=== PATIENT | male | born 1970 | race Caucasian/White ===

== ENCOUNTER 2021-01-23 09:27 | Inpatient (IN) | payer OTHER ==
[2021-01-23] MEDS ORDERED: SODIUM CHLORIDE 0.9% 1,000 ML IV STA ×2 (10:01)
[2021-01-23] MEDS ORDERED: ALBUTEROL HFA INHALER INHALATION STA (10:12)
[2021-01-23 10:40] LABS: Basophils # (A) 0.1 k/uL (0-0.2); Basophils % (A) 1 %; Eosinophils % (A) 0 %; HGB 17.4 gm/dL (13.0-17.5); Lymphocytes # (A) 1.2 k/uL (1.0-4.8); Lymphocytes % (A) 20 %; MCH 27.1 pg (25.0-35.0); MCHC 33.5 g/dL (31.0-37.0); Mean Platelet Volume 8.3; Monocytes # (A) 0.4 k/uL (0-1.0); Monocytes % (A) 6 %; Neutrophils # (A) 4.4 k/uL (1.3-7.7); Neutrophils % (A) 72 %; Platelet Count 204 k/uL (150-450); RBC 6.42 m/uL (4.30-5.90); RDW 13.8 % (11.5-15.5); WBC 6.1 k/uL (3.8-10.6)
[2021-01-23 10:47] LABS: ALT 19 U/L (4-49); AST 30 U/L (17-59); African American GFR (CKD) >90 (>60 ml/min/1.73 sqM); Albumin 4.4 g/dL (3.5-5.0); Alkaline Phosphatase 67 U/L (38-126); Anion Gap 17 mmol/L; Blood Urea Nitrogen 19 mg/dL (9-20); Calcium 8.8 mg/dL (8.4-10.2); Carbon Dioxide 24 mmol/L (22-30); Chloride 94 mmol/L (98-107); Creatine Kinase 57 U/L (55-170); Glucose 155 mg/dL (74-99); Non-African American GFR(CKD) 86 (>60 ml/min/1.73 sqM); Potassium 4.2 mmol/L (3.5-5.1); Sodium 135 mmol/L (137-145); Total Bilirubin 0.9 mg/dL (0.2-1.3); Total Protein 7.4 g/dL (6.3-8.2)
[2021-01-23 10:54] LABS: Partial Thromboplastin Time 23.4 sec (22.0-30.0); Prothrombin Time 10.3 sec (9.0-12.0)
[2021-01-23 10:56] LABS: D-Dimer 0.92 mg/L FEU (<0.60)
--- NOTE | 2021-01-23 10:57 | XR ---
EXAMINATION TYPE: XR chest 2V DATE OF EXAM: 01/23/2021 COMPARISON: Chest x-ray September 23, 2015 HISTORY: Shortness of breath. TECHNIQUE: Frontal and lateral views of the chest are obtained. FINDINGS: There is chronic parenchymal change bilaterally without suspicious new focal air space opa city, pleural effusion, or pneumothorax seen. The cardiac silhouette size is stable and upper limits of normal. Overlying EKG leads. The osseous structures are intact. IMPRESSION: Chronic changes without acute pulmonary process.
--- NOTE | 2021-01-23 11:01 | ED ---
SOB HPI - General Chief Complaint: Shortness of Breath Stated Complaint: SANJU Time Seen by Provider: 01/23/21 09:40 Source: patient, RN notes reviewed Mode of arrival: ambulatory Limitations: no limitations - History of Present Illness Initial Comments: This a 50-year-old male who was diagnosed with Covid 19 last week had an outpatient clinic after presenting with complaints of headache fever. Her last 7 days he's been homebound but he presents today with complaints of fever cough shortness of breath chest pain with breathing exertional dyspnea. He states he did decrease oral intake and appetite. MD Complaint: shortness of breath, cough - Related Data Home Medications Medication Instructions Recorded Confirmed ARIPiprazole [Abilify] 20 mg PO DAILY 01/23/21 01/23/21 Alogliptin Benzoate [Alogliptin] 25 mg PO DAILY 01/23/21 01/23/21 Cholecalciferol [Vitamin D3 (25 50 mcg PO DAILY 01/23/21 01/23/21 Mcg = 1000 Iu)] Empagliflozin [Jardiance] 25 mg PO DAILY 01/23/21 01/23/21 FLUoxetine HCL [PROzac] 60 mg PO DAILY 01/23/21 01/23/21 Fluticasone Nasal [place] [Flonase 1 spr EA NOSTRIL BID 01/23/21 01/23/21 Nasal [place]] Insulin Glargine,Hum.rec.anlog 50 unit SQ HS 01/23/21 01/23/21 [Lantus Solostar] Levothyroxine Sodium [Synthroid] 50 mcg PO DAILY 01/23/21 01/23/21 Lidocaine 5% Patch [Lidoderm 5% 1 patch TRANSDERM DAILY 01/23/21 01/23/21 Patch] Naproxen [Naprosyn] 500 mg PO BID PRN 01/23/21 01/23/21 QUEtiapine FUMARATE [SEROquel] 300 mg PO TID 01/23/21 01/23/21 Sildenafil Citrate 100 mg PO DAILY PRN 01/23/21 01/23/21 Temazepam [Restoril] 30 - 60 mg PO HS PRN 01/23/21 01/23/21 glipiZIDE [Glucotrol] 5 mg PO AC-BID 01/23/21 01/23/21 metFORMIN HCL 1,000 mg PO BID 01/23/21 01/23/21 Allergies Allergy/AdvReac Type Severity Reaction Status Date / Time lithium Allergy Rash/Hives Verified 01/23/21 11:23 Review of Systems ROS Statement: Those systems with pertinent positive or pertinent negative responses have been documented in the HPI. ROS Other: All systems not noted in ROS Statement are negative. Past Medical History Past Medical History: Diabetes Mellitus, Hyperlipidemia History of Any Multi-Drug Resistant Organisms: None Reported Past Surgical History: Orthopedic Surgery Additional Past Surgical History / Comment(s): left arm Past Anesthesia/Blood Transfusion Reactions: No Reported Reaction Past Psychological History: Bipolar, Depression, PTSD Smoking Status: Never smoker Past Alcohol Use History: Rare Past Drug Use History: None Reported General Exam - General Exam Comments Initial Comments: This is a well-developed well-nourished awake alert oriented 3 male Limitations: no limitations General appearance: alert, anxious Head exam: Present: atraumatic, normocephalic, normal inspection Eye exam: Present: normal appearance, PERRL, EOMI. Absent: scleral icterus, conjunctival injection, periorbital swelling ENT exam: Present: mucous membranes dry Neck exam: Present: normal inspection, full ROM, other (No stridor JVD or bruits). Absent: tenderness, meningismus, lymphadenopathy Respiratory exam: Present: decreased breath sounds. Absent: respiratory distress, wheezes, rales, rhonchi, stridor Cardiovascular Exam: Present: normal rhythm, tachycardia, normal heart sounds. Absent: systolic murmur, diastolic murmur, rubs, gallop, clicks GI/Abdominal exam: Present: soft, normal bowel sounds. Absent: distended, tenderness, guarding, rebound, rigid Extremities exam: Present: normal inspection, full ROM, normal capillary refill. Absent: tenderness, pedal edema, joint swelling, calf tenderness Back exam: Present: normal inspection Neurological exam: Present: alert, oriented X3, CN II-XII intact Psychiatric exam: Present: normal affect, normal mood Skin exam: Present: warm, dry, intact, normal color. Absent: rash Course Vital Signs 01/23/21 01/23/21 01/23/21 09:29 09:45 10:00 Temperature 100.3 F H Pulse Rate 137 H 127 H Respiratory 16 18 Rate Blood Pressure 127/81 139/93 O2 Sat by Pulse 95 95 98 Oximetry 01/23/21 01/23/21 01/23/21 11:00 11:48 12:35 Temperature 99.3 F Pulse Rate 120 H 120 H 115 H Respiratory 20 20 20 Rate Blood Pressure 139/93 145/95 136/93 O2 Sat by Pulse 97 95 97 Oximetry Medical Decision Making - Medical Decision Making I did discuss Pfizer the patient and with Dr. Cesar the patient be admitted for inpatient evaluation treatment of bilateral pneumonia, dehydration, tachycardia,covid 19 - Lab Data Result diagrams: 01/23/21 10:20 01/23/21 10:20 Lab Results 01/23/21 01/23/21 01/23/21 Range/Units 10:20 10:20 10:20 WBC 6.1 (3.8-10.6) k/uL RBC 6.42 H (4.30-5.90) m/uL Hgb 17.4 (13.0-17.5) gm/dL Hct 52.0 (39.0-53.0) % MCV 81.0 (80.0-100.0) fL MCH 27.1 (25.0-35.0) pg MCHC 33.5 (31.0-37.0) g/dL RDW 13.8 (11.5-15.5) % Plt Count 204 (150-450) k/uL MPV 8.3 Neutrophils % 72 % Lymphocytes % 20 % Monocytes % 6 % Eosinophils % 0 % Basophils % 1 % Neutrophils # 4.4 (1.3-7.7) k/uL Lymphocytes # 1.2 (1.0-4.8) k/uL Monocytes # 0.4 (0-1.0) k/uL Eosinophils # 0.0 (0-0.7) k/uL Basophils # 0.1 (0-0.2) k/uL PT 10.3 (9.0-12.0) sec INR 1.0 (<1.2) APTT 23.4 (22.0-30.0) sec D-Dimer 0.92 H (<0.60) mg/L FEU Sodium 135 L (137-145) mmol/L Potassium 4.2 (3.5-5.1) mmol/L Chloride 94 L (98-107) mmol/L Carbon Dioxide 24 (22-30) mmol/L Anion Gap 17 mmol/L BUN 19 (9-20) mg/dL Creatinine 1.00 (0.66-1.25) mg/dL Est GFR (CKD-EPI)AfAm >90 (>60 ml/min/1.73 sqM) Est GFR (CKD-EPI)NonAf 86 (>60 ml/min/1.73 sqM) Glucose 155 H (74-99) mg/dL Plasma Lactic Acid Nick (0.7-2.0) mmol/L Calcium 8.8 (8.4-10.2) mg/dL Magnesium 2.0 (1.6-2.3) mg/dL Total Bilirubin 0.9 (0.2-1.3) mg/dL AST 30 (17-59) U/L ALT 19 (4-49) U/L Alkaline Phosphatase 67 (38-126) U/L Creatine Kinase 57 (55-170) U/L Troponin I (0.000-0.034) ng/mL NT-Pro-B Natriuret Pep pg/mL Total Protein 7.4 (6.3-8.2) g/dL Albumin 4.4 (3.5-5.0) g/dL 01/23/21 01/23/21 01/23/21 Range/Units 10:20 10:20 10:20 WBC (3.8-10.6) k/uL RBC (4.30-5.90) m/uL Hgb (13.0-17.5) gm/dL Hct (39.0-53.0) % MCV (80.0-100.0) fL MCH (25.0-35.0) pg MCHC (31.0-37.0) g/dL RDW (11.5-15.5) % Plt Count (150-450) k/uL MPV Neutrophils % % Lymphocytes % % Monocytes % % Eosinophils % % Basophils % % Neutrophils # (1.3-7.7) k/uL Lymphocytes # (1.0-4.8) k/uL Monocytes # (0-1.0) k/uL Eosinophils # (0-0.7) k/uL Basophils # (0-0.2) k/uL PT (9.0-12.0) sec INR (<1.2) APTT (22.0-30.0) sec D-Dimer (<0.60) mg/L FEU Sodium (137-145) mmol/L Potassium (3.5-5.1) mmol/L Chloride (98-107) mmol/L Carbon Dioxide (22-30) mmol/L Anion Gap mmol/L BUN (9-20) mg/dL Creatinine (0.66-1.25) mg/dL Est GFR (CKD-EPI)AfAm (>60 ml/min/1.73 sqM) Est GFR (CKD-EPI)NonAf (>60 ml/min/1.73 sqM) Glucose (74-99) mg/dL Plasma Lactic Acid Nick 2.0 (0.7-2.0) mmol/L Calcium (8.4-10.2) mg/dL Magnesium (1.6-2.3) mg/dL Total Bilirubin (0.2-1.3) mg/dL AST (17-59) U/L ALT (4-49) U/L Alkaline Phosphatase (38-126) U/L Creatine Kinase (55-170) U/L Troponin I <0.012 (0.000-0.034) ng/mL NT-Pro-B Natriuret Pep 18 pg/mL Total Protein (6.3-8.2) g/dL Albumin (3.5-5.0) g/dL - EKG Data -: EKG Interpreted by Me EKG shows normal: sinus rhythm EKG Comments: Sinus tachycardia rate 136. Interval 132 QRS 80 QT since QTC 280/433 evidence of a left posterior fascicular block. - Radiology Data Radiology results: report reviewed (Image reviewed no definitive evidence of PE there is however evidence of bilateral infiltrates consistent with pneumonia.), image reviewed Disposition Clinical Impression: Bronchospasm, acute, Bilateral pneumonia, History of COVID-19, Dehydration, Tachycardia, Failure to thrive Disposition: ADMITTED IP TO THIS HOSP Condition: Fair Referrals: [facility],Clinic [Primary Care Provider] - 1-2 days
--- NOTE | 2021-01-23 12:24 | CT ---
EXAMINATION TYPE: CT angio chest DATE OF EXAM: 01/23/2021 11:47 AM COMPARISON: Chest x-ray earlier today HISTORY: difficulty breathing CT DLP: 552.2 mGycm Automated exposure control for dose reduction was used. CONTRAST: CTA scan of the thorax is performed with IV Contrast, patient injected with 100 mL of Isovue 370, pul monary embolism protocol. MIP images are created and reviewed. FINDINGS: LUNGS: Multifocal areas of groundglass opacity bilaterally greatest in the right lower lobe are prese nt on CT less well seen on plain films. No nodules or masses. No pleural effusion or pneumothorax. Mi ld linear scarring or atelectasis left lung base. MEDIASTINUM: There is some heterogeneity in contrast bolus with more dense contrast in the aorta, no acute pulmonary embolism is identified. There are no greater than 1 cm hilar or mediastinal lymph no nuzhat. No pericardial effusion is seen. Abnormal 2.0 x 1.9 cm right paratracheal hyperdense mass or l ymph node axial image 31. Prominent but subcentimeter bilateral hilar lymph nodes. Trace pericardial effusion right anterior inferior aspect. No cardiomegaly. No thoracic aortic aneurysm or dissection. OTHER: Small hiatal hernia. Low dense thickening both adrenal glands right greater than left favors benign lipid rich hyperplasia. Low density to liver suggests diffuse fatty infiltration. Underlying S coliotic curvature. IMPRESSION: 1. Suboptimal study without CT evidence for acute pulmonary embolism. 2. Bilateral multifocal ground glass opacities greatest in the right lower lobe, Covid-19 infection n eeds to be considered in current environment. Suspect reactive bilateral hilar adenopathy. More suspi cious right paratracheal mass or adenopathy warrants follow-up.
[2021-01-23] MEDS ORDERED: ALBUTEROL NEBULIZED 2.5 MG/3 ML INHALATION PRN (12:58)
[2021-01-23] MEDS ORDERED: PNEUMONIA PROTOCOL UTILIZED 1 EACH MISC PO PRN (12:58)
[2021-01-23] MEDS ORDERED: NAPROXEN 250 MG TAB PO PRN (13:01)
[2021-01-23] MEDS ORDERED: TEMAZEPAM 30 MG CAP PO PRN (13:01)
[2021-01-23] MEDS: SODIUM CHLORIDE 0.9% 1,000 ML IV SCH ×2 (14:31→20:22)
--- NOTE | 2021-01-23 15:23 | P.CNPUL ---
History of Present Illness Consult date: 01/23/21 Reason for consult: dyspnea, pneumonia History of present illness: 48-year-old male patient was hospitalized today through the emergency department because of worsening shortness of breath. The patient started having headache and tiredness and fatigue along with some chills and fever approximately a week ago and he went to [facility] and [place] where he was tested and he checked positive for COVID 19. Following that, the patient was sent home on no treatment and he was receiving only supportive treatment. The patient started getting progressively more shortness of breath and he started having increased cough and for that reason he came into the emergency department today where he was found to be tachycardic and hypoxic and he was placed on oxygen at 2 L per minute nasal cannula and the pulse ox is currently 95%. He is in sinus rhythm. He is afebrile. His blood work on today's evaluation shows a white second of 6.1, d-dimer is at 0.92, and the rest of the blood work shows normal electrolytes, normal renal function test, normal LFTs, troponins are negative, proBNP level was nonelevated. Inflammatory markers were not sent and they should. The chest x-ray showed some limited infiltrates and based on that the patient underwent a CT angios the chest that showed no evidence of any pulmonary embolism. There was vague interstitial and ground glass pulmonary infiltrate bilaterally more so in the right lower lobe. This was consistent with Covid 19 infection. For that reason, the patient was hospitalized. No altered mentation. He has loss in the face and the smell. No chest pain. No smoking. No history of COPD or asthma. He is diabetic and he takes a combination of treatment including Lantus, glipizide, Jardiance, ALOGLIPTIN. Noted the patient also had a low-grade fever at 100.3 on admission and currently is afebrile. Review of Systems Constitutional: Reports chills, Reports fatigue, Reports fever, Reports weakness Eyes: denies as per HPI, denies blurred vision, denies bulging eye, denies decreased vision, denies diplopia, denies discharge, denies dry eye, denies irritation, denies itching, denies pain, denies photophobia, denies loss of peripheral vision, denies loss of vision, denies tunnel vision/blind spots Ears: deny: decreased hearing, ear discharge, earache, tinnitus Ears, nose, mouth and throat: Denies headache, Denies sore throat Cardiovascular: Reports decreased exercise tolerance, Reports dyspnea on exertion Respiratory: Reports cough, Reports dyspnea Gastrointestinal: Reports as per HPI Genitourinary: Reports as per HPI Musculoskeletal: Reports as per HPI Musculoskeletal: absent: ankle pain, ankle stiffness, ankle swelling, as per HPI, elbow pain, elbow stiffness, elbow swelling, foot pain, foot stiffness, foot swelling, hand pain, hand stiffness, hand swelling, hip pain, hip stiffness, hip swelling, knee pain, knee stiffness, knee swelling, shoulder pain, shoulder stiffness, shoulder swelling, wrist pain, wrist stiffness, wrist swelling Integumentary: Reports as per HPI Neurological: Reports headaches Psychiatric: Reports as per HPI Endocrine: Reports fatigue Hematologic/Lymphatic: Reports as per HPI Allergic/Immunologic: Reports as per HPI Past Medical History Past Medical History: Diabetes Mellitus, GERD/Reflux, Hearing Disorder / Deafness, Hyperlipidemia, Osteoarthritis (OA) Additional Past Medical History / Comment(s): COVID + 01/16/21 at [place], IDDM type II, insomnia, hypothyroid, R ear tinnitis, sinus problems, chronic low back pain, RLS. History of Any Multi-Drug Resistant Organisms: None Reported Past Surgical History: Orthopedic Surgery Additional Past Surgical History / Comment(s): L shoulder arthroscopy Past Anesthesia/Blood Transfusion Reactions: No Reported Reaction Past Psychological History: Bipolar, Depression, PTSD Additional Psychological History / Comment(s): Pt resides alone. He is independent. He drives. Pt sees someone for his mental health thru [facility] in [place]. Smoking Status: Never smoker Past Alcohol Use History: None Reported Past Drug Use History: None Reported - Past Family History Mother Family Medical History: COPD Additional Family Medical History / Comment(s): Mother has home oxygen. Father Family Medical History: Myocardial Infarction ([place]) Additional Family Medical History / Comment(s): Father of a [place] at the age of 59 yrs. Medications and Allergies Home Medications Medication Instructions Recorded Confirmed Type ARIPiprazole [Abilify] 20 mg PO DAILY 01/23/21 01/23/21 History Alogliptin Benzoate [Alogliptin] 25 mg PO DAILY 01/23/21 01/23/21 History Cholecalciferol [Vitamin D3 (25 50 mcg PO DAILY 01/23/21 01/23/21 History Mcg = 1000 Iu)] Empagliflozin [Jardiance] 25 mg PO DAILY 01/23/21 01/23/21 History FLUoxetine HCL [PROzac] 60 mg PO DAILY 01/23/21 01/23/21 History Fluticasone Nasal [place] [Flonase 1 spr EA NOSTRIL BID 01/23/21 01/23/21 History Nasal [place]] Insulin Glargine,Hum.rec.anlog 50 unit SQ HS 01/23/21 01/23/21 History [Lantus Solostar] Levothyroxine Sodium [Synthroid] 50 mcg PO DAILY 01/23/21 01/23/21 History Lidocaine 5% Patch [Lidoderm 5% 1 patch TRANSDERM DAILY 01/23/21 01/23/21 History Patch] Naproxen [Naprosyn] 500 mg PO BID PRN 01/23/21 01/23/21 History QUEtiapine FUMARATE [SEROquel] 300 mg PO TID 01/23/21 01/23/21 History Sildenafil Citrate 100 mg PO DAILY PRN 01/23/21 01/23/21 History Temazepam [Restoril] 30 - 60 mg PO HS PRN 01/23/21 01/23/21 History glipiZIDE [Glucotrol] 5 mg PO AC-BID 01/23/21 01/23/21 History metFORMIN HCL 1,000 mg PO BID 01/23/21 01/23/21 History Allergies Allergy/AdvReac Type Severity Reaction Status Date / Time lithium Allergy Rash/Hives Verified 01/23/21 11:23 Physical Exam Vitals: Vital Signs Temp Pulse Resp BP Pulse Ox 01/23/21 14:31 99.3 F 114 H 22 127/72 95 01/23/21 12:35 115 H 20 136/93 97 01/23/21 11:48 99.3 F 120 H 20 145/95 95 01/23/21 11:00 120 H 20 139/93 97 01/23/21 10:00 127 H 18 139/93 98 01/23/21 09:45 95 01/23/21 09:29 100.3 F H 137 H 16 127/81 95 Intake and Output 01/23/21 01/23/21 01/23/21 06:59 14:59 22:59 Other: Weight 59.874 kg The patient appeared well nourished and normally developed. Vital signs as documented. Head exam is unremarkable. No scleral icterus or corneal arcus noted. Neck is without jugular venous distension, thyromegaly, or carotid bruits. Carotid upstrokes are brisk bilaterally. Lungs are clear to auscultation and percussion. There were a few crackles in the the lung bases can be appreciated bilaterally Cardiac exam reveals the PMI to be normally sized and situated. Rhythm is regular. First and second heart sounds normal. No murmurs, rubs or gallops. Abdominal exam reveals normal bowel sounds, no masses, no organomegaly and no aortic enlargement. Extremities are nonedematous and both femoral and pedal pulses are normal.Examination of the skin revealed no evidence of significant rashes, suspicious appearing nevi or other concerning lesion s.Neurologically, the patient is awake and alert and the patient does not have any focal neurological deficit. Cranial nerves are essentially intact. Results - Laboratory Findings CBC and BMP: 01/23/21 10:20 01/23/21 10:20 PT/INR, D-dimer PT 10.3 sec (9.0-12.0) 01/23/21 10:20 INR 1.0 (<1.2) 01/23/21 10:20 D-Dimer 0.92 mg/L FEU (<0.60) H 01/23/21 10:20 Abnormal lab findings: Abnormal Labs 01/23/21 01/23/21 01/23/21 10:20 10:20 10:20 RBC 6.42 H D-Dimer 0.92 H Sodium 135 L Chloride 94 L Glucose 155 H - Diagnostic Findings Chest x-ray: image reviewed CT scan - chest: image reviewed Assessment and Plan Plan: 1 Acute bilateral COVID 19 related pneumonia with secondary shortness of breath and hypoxic respiratory failure. The patient was diagnosed having the infection on 01/16/2021. 2 acute hypoxemia and shortness of breath secondary to above 3 constitutional symptoms in addition to generalized weakness, chills, fever, fatigue and loss in taste and smell secondary to COVID 19 infection 4 diabetes mellitus maintained on a combination of diabetic medication on outpatient basis 5 PTSD and the patient is disabled from the [employer] and is a 6 depression/bipolar disorder 7 hypothyroidism 8 hyperlipidemia 9 osteoarthritis Plan Admit this patient to the medical floor Start the patient oxygen to maintain a saturation above 90%. Titrate the flow Start the patient on Decadron 6 mg by mouth daily Start the patient on Remdesivir per protocol for a total of 5 days Proceed with administering 2 units of convalescent plasma Lovenox 40 mg subcu for DVT prophylaxis Check inflammatory markers including LDH and CRP Monitor the d-dimer Resume home medication will close monitoring of the blood sugars We'll continue to follow
[2021-01-23] MEDS ORDERED: ENOXAPARIN 40 MG/0.4 ML SYRINGE SQ SCH (15:45)
[2021-01-23] MEDS ORDERED: REMDESIVIR 200 MG in SODIUM CHLORIDE 0.9% 250 ML IVPB ONE (16:00)
[2021-01-23] MEDS: glipiZIDE 5 MG TAB PO SCH (17:39)
[2021-01-23] MEDS: QUEtiapine 100 MG TAB PO SCH ×2 (17:53→20:21)
[2021-01-23] MEDS ORDERED: HYDROcodone/APAP 5-325MG 1 EACH TAB PO PRN (17:58)
[2021-01-23] MEDS ORDERED: ALPRAZolam 0.25 MG TAB PO PRN (17:58)
[2021-01-23] MEDS: dexAMETHasone 2 MG TAB PO SCH (18:29)
[2021-01-23] MEDS: ASCORBIC ACID 500 MG TAB PO SCH (18:29)
[2021-01-23] MEDS: ZINC SULFATE 220 MG CAP PO SCH (18:29)
--- NOTE | 2021-01-23 19:55 | HP ---
HISTORY AND PHYSICAL DATE OF SERVICE: 01/23/2021. CHIEF COMPLAINT: Shortness of breath. HISTORY OF PRESENT ILLNESS: This 50-year-old gentleman with a past medical history of diabetes, GERD, hard of hearing, hyperlipidemia, history of DJD being followed by Dr. Castellanos and [facility] in the outpatient setting was having shortness of breath and cough for the last 1 week at least. The patient was seen in [facility] 01/16/2021. Covid 19 was positive. Patient treated symptomatically. The patient went home but the patient has increasing shortness of breath and also has a headache and fever. Because of multiple complications, and the patient also had some cough. The patient came to [facility] and was admitted for further evaluation and treatment. On admission, the pulse ox was found to be 90% on room air. The patient was found to be tachycardic. The labs showed normal WBC, elevated D-dimer, and some hyponatremia. The patient also had a CT angio of the chest which I reviewed personally that showed small hiatal hernia, suboptimal study for pulmonary embolism and bilateral ground-glass opacities suggestive of Covid 19, interstitial pneumonia was also noted. Distribution of the lesions were extensive, right more than the left. Evaluation by pulmonology and Infectious Disease was also sought. There is no history of any rigors or chills at this time. No history of any contact with Covid infections also. PAST MEDICAL HISTORY: History of recent Covid 19 infection, diabetes type 2, GERD, hyperlipidemia, DJD. MEDICATIONS: Medications prior to admission: Home medications are: Lantus 50 units subcu q.h.s., metformin, glipizide, Restoril, Viagra, Seroquel, Naprosyn, Lidoderm, Synthroid, Flonase, Prozac, Jardiance, vitamin D3 and Alogliptin, Abilify. Doses reviewed. ALLERGIES: LITHIUM. FAMILY HISTORY: History of COPD, home O2 for mother. SOCIAL HISTORY: No history of smoking, no history of alcohol intake. REVIEW OF SYSTEMS: ENT: No diminished hearing. No diminished vision. CARDIOVASCULAR system: As mentioned earlier. RESPIRATORY: As mentioned earlier. GI no nausea or vomiting. : No dysuria. NERVOUS SYSTEM: No numbness, weakness. ALLERGY/IMMUNOLOGY: No asthma or hayfever. MUSCULOSKELETAL as mentioned earlier. HEMATOLOGY/ONCOLOGY: No history of anemia. ENDOCRINE: As mentioned earlier. CONSTITUTIONAL: As mentioned earlier. DERMATOLOGY: Negative. RHEUMATOLOGY negative. PSYCHIATRY as mentioned earlier. PHYSICAL EXAMINATION: The patient is alert and oriented times three. Pulse 116, blood pressure 130/80, respiration 22, temperature 99.2, pulse ox 98% on room air. HEENT is conjunctivae normal. NECK: No JVD. CARDIOVASCULAR: S1, S2 muffled. RESPIRATORY: Breath sounds diminished in the bases. Bilateral scattered rhonchi and crackles. ABDOMEN: Soft, obese, nontender. No mass palpable. LEGS: No edema. No swelling. NERVOUS SYSTEM: Higher functions as mentioned earlier. Moves all 4 limbs. No focal motor or sensory deficits. LYMPHATICS: No lymph nodes palpable in the neck, axillae or groin. SKIN: No ulcer, rash or bleeding. JOINTS: No active deforming arthropathy. LAB STUDIES: WBC 6.2, hemoglobin 17.4. D-dimer is 0.92. Sodium 135. ASSESSMENT: 1. Acute COVID-19 pneumonia with acute bilateral interstitial pneumonia with acute hypoxic respiratory failure, present on admission. 2. Elevated D-dimer without any evidence of pulmonary embolism. 3. Hyponatremia. 4. Elevated random glucose, diabetes mellitus type 2. 5. Gastroesophageal reflux disease. 6. Hearing defect. 7. Hyperlipidemia. 8. History of degenerative joint disease. 9. History of bipolar depression, PTSD. 10.Obesity with body mass of 31.9. 11.FULL CODE. RECOMMENDATIONS AND DISCUSSION: In this 50-year-old gentleman who presented with multiple complex medical issues, acute COVID-19 pneumonia, at this time, I recommend to continue the current medications, continue with bronchodilators. We will initiate dexamethasone, zinc and Lovenox. Otherwise, I would also recommend Infectious Disease and Pulmonary consultations. The patient is a candidate for Remdesivir which will be started. Prognosis guarded because of multiple complex medical issues. Further recommendations to follow. A copy of dictation being forwarded to Dr. Castellanos, who is the primary physician. We will monitor the blood sugars closely. See orders for details. MMODL / IJN: [id number] /
[2021-01-23 20:20] LABS: Glucose,Whole Blood 187 mg/dL (75-99)
[2021-01-23] MEDS: FLUTICASONE 50MCG/SPRAY NASAL 16GM EA NOSTRIL SCH (20:20)
[2021-01-23] MEDS: metFORMIN 500 MG TAB PO SCH (20:21)
[2021-01-23] MEDS: INSULIN DETEMIR (LEVEMIR) 100 UNIT/ML SYR SQ SCH (20:21)
[2021-01-24 03:09] LABS: Appearance,Urine Clear (Clear); Bilirubin,Urine Negative (Negative); Blood,Urine Negative (Negative); Color,Urine Yellow; Glucose,Urine (UA) 4+ (Negative); Leukocyte Esterase,Urine Negative (Negative); Mucus,Urine Rare /hpf; Nitrite,Urine Negative (Negative); PH, Urine 5.5 (5.0-8.0); Protein,Urine 1+ (Negative); RBC,Urine <1 /hpf (0-5); Specific Gravity,Urine 1.035 (1.001-1.035); Urobilinogen,Urine <2.0 mg/dL (<2.0); WBC,Urine <1 /hpf (0-5)
[2021-01-24 03:41] LABS: Ketones,Urine 2+ (Negative)
[2021-01-24 06:04] LABS: Glucose,Whole Blood 153 mg/dL (75-99)
[2021-01-24] MEDS: LEVOTHYROXINE 50 MCG TAB PO SCH (06:29)
[2021-01-24] MEDS: SODIUM CHLORIDE 0.9% 1,000 ML IV SCH ×3 (06:29→20:10)
[2021-01-24] MEDS: glipiZIDE 5 MG TAB PO SCH ×2 (06:30→17:13)
[2021-01-24 07:35] LABS: African American GFR (CKD) >90 (>60 ml/min/1.73 sqM); Anion Gap 11 mmol/L; Blood Urea Nitrogen 21 mg/dL (9-20); Calcium 8.4 mg/dL (8.4-10.2); Carbon Dioxide 26 mmol/L (22-30); Chloride 102 mmol/L (98-107); Glucose 166 mg/dL (74-99); LDH 682 U/L (313-618); Non-African American GFR(CKD) >90 (>60 ml/min/1.73 sqM); Potassium 4.3 mmol/L (3.5-5.1); Sodium 139 mmol/L (137-145)
[2021-01-24] MEDS ORDERED: ALBUTEROL HFA INHALER INHALATION PRN (07:43)
[2021-01-24 07:52] LABS: Basophils % (A) 0 %; Eosinophils % (A) 0 %; HCT 44.7 % (39.0-53.0); Lymphocytes # (A) 0.7 k/uL (1.0-4.8); Lymphocytes % (A) 18 %; MCH 26.1 pg (25.0-35.0); MCHC 31.8 g/dL (31.0-37.0); MCV 82.2 fL (80.0-100.0); Mean Platelet Volume 8.6; Monocytes # (A) 0.2 k/uL (0-1.0); Monocytes % (A) 5 %; Neutrophils # (A) 2.9 k/uL (1.3-7.7); Neutrophils % (A) 74 %; Platelet Count 197 k/uL (150-450); RBC 5.43 m/uL (4.30-5.90); RDW 13.8 % (11.5-15.5); WBC 3.9 k/uL (3.8-10.6)
[2021-01-24 07:55] LABS: HGB 14.2 gm/dL (13.0-17.5)
--- NOTE | 2021-01-24 07:57 | XR ---
EXAMINATION TYPE: XR chest 1V DATE OF EXAM: 01/24/2021 COMPARISON: Chest x-ray and CT 01/23/2021 HISTORY: Pneumonia TECHNIQUE: Single frontal view of the chest is obtained. FINDINGS: Vague patchy bilateral density is present within the lungs. Cardiac mediastinal silhouette is stable. No pneumothorax or pleural effusion. There are overlying leads. Patient is rotated. IMPRESSION: Correlate for pneumonia.
[2021-01-24 08:31] LABS: C Reactive Protein 159.7 mg/L (<10.0)
[2021-01-24] MEDS ORDERED: ENOXAPARIN 40 MG/0.4 ML SYRINGE SQ SCH (09:00)
[2021-01-24 09:11] VITALS: BMI 24.3
[2021-01-24] MEDS: FLUoxetine HCL 20 MG CAP PO SCH (09:36)
[2021-01-24] MEDS: ASCORBIC ACID 500 MG TAB PO SCH (09:36)
[2021-01-24] MEDS: CHOLECALCIFEROL 25 MCG (1000 IU) TABLET PO SCH (09:36)
[2021-01-24] MEDS: dexAMETHasone 2 MG TAB PO SCH (09:36)
[2021-01-24] MEDS: LIDOCAINE 5% PATCH TOPICAL SCH (09:37)
[2021-01-24] MEDS: ZINC SULFATE 220 MG CAP PO SCH (09:37)
[2021-01-24] MEDS: LINAGLIPTIN 5 MG TABLET PO SCH (09:43)
[2021-01-24] MEDS: metFORMIN 500 MG TAB PO SCH ×2 (09:43→20:08)
[2021-01-24] MEDS: QUEtiapine 100 MG TAB PO SCH ×3 (09:44→20:08)
[2021-01-24] MEDS: FLUTICASONE 50MCG/SPRAY NASAL 16GM EA NOSTRIL SCH ×2 (09:47→20:10)
[2021-01-24] MEDS: NON FORMULARY DRUG (Empagliflozin [Jardiance] 25 MG Tablet) PO SCH (11:37)
--- NOTE | 2021-01-24 12:21 | P.PN ---
Subjective Progress Note Date: 01/24/21 48-year-old male patient was hospitalized today through the emergency department because of worsening shortness of breath. The patient started having headache and tiredness and fatigue along with some chills and fever approximately a week ago and he went to [facility] and [place] where he was tested and he checked positive for COVID 19. Following that, the patient was sent home on no treatment and he was receiving only supportive treatment. The patient started getting progressively more shortness of breath and he started having increased cough and for that reason he came into the emergency department today where he was found to be tachycardic and hypoxic and he was placed on oxygen at 2 L per minute nasal cannula and the pulse ox is currently 95%. He is in sinus rhythm. He is afebrile. His blood work on today's evaluation shows a white second of 6.1, d-dimer is at 0.92, and the rest of the blood work shows normal electrolytes, normal renal function test, normal LFTs, troponins are negative, proBNP level was nonelevated. Inflammatory markers were not sent and they should. The chest x-ray showed some limited infiltrates and based on that the patient underwent a CT angios the chest that showed no evidence of any pulmonary embolism. There was vague interstitial and ground glass pulmonary infiltrate bilaterally more so in the right lower lobe. This was consistent with Covid 19 infection. For that reason, the patient was hospitalized. No altered mentation. He has loss in the face and the smell. No chest pain. No smoking. No history of COPD or asthma. He is diabetic and he takes a combination of treatment including Lantus, glipizide, Jardiance, ALOGLIPTIN. Noted the patient also had a low-grade fever at 100.3 on admission and currently is afebrile. on 01/24/2021, I'm seeing the patient for a follow-up. She is hospitalized for covert 19 pneumonia and secondary shortness of breath. She is currently on oxygen at 2 L with a pulse ox of 95%. She is afebrile. Her tachycardia has improved and the patient's heart rate has slowed down considerably knowing that she was quite tachycardic at time of admission. She is afebrile. Inflammatory markers for now show a LDH of 682 and a CRP level of 159. Her pro-calcitonin level was at 0.14. The chest x-ray from today showed limited interstitial infiltrates in the lung bases most on the left. There is some cardiomegaly. The patient is currently on Decadron and she is receiving 6 mg by mouth on a daily basis. She is also taken Remdesivir per protocol and she is on Lovenox , blood sugar is under adequate control for now. Objective - Vital Signs Vital signs: Vital Signs Temp 98.4 F 01/24/21 08:00 Pulse 100 01/24/21 08:00 Resp 18 01/24/21 08:00 BP 120/70 01/24/21 08:00 Pulse Ox 95 01/24/21 08:00 Intake & Output 01/23/21 01/24/21 01/24/21 18:59 06:59 18:59 Intake Total 240 1737 600 Output Total 500 550 Balance -260 1187 600 Weight 101 kg 77 kg 77 kg Intake: Intake, IV Titration 1040 Amount Sodium Chloride 0.9% 1, 1040 000 ml @ 130 mls/hr IV . Q7H42M [facility] Rx#:[id number] Oral 240 480 600 Blood Product 217 Ffp Pher Conval Covid19 217 Acda 2 Unit [id number] Output: Urine 500 550 Other: Voiding Method Toilet Toilet Urinal Urinal # Voids 0 1 - Exam The patient appeared well nourished and normally developed. Vital signs as documented. Head exam is unremarkable. No scleral icterus or corneal arcus noted. Neck is without jugular venous distension, thyromegaly, or carotid bruits. Carotid upstrokes are brisk bilaterally. Lungs are clear to auscultation and percussion. There were a few crackles in the the lung bases can be appreciated bilaterally Cardiac exam reveals the PMI to be normally sized and situated. Rhythm is regular. First and second heart sounds normal. No murmurs, rubs or gallops. Abdominal exam reveals normal bowel sounds, no masses, no organomegaly and no aortic enlargement. Extremities are nonedematous and both femoral and pedal pulses are normal.Examination of the skin revealed no evidence of significant rashes, suspicious appearing nevi or other concerning lesions.Neurologically, the patient is awake and alert and the patient does not have any focal neurological deficit. Cranial nerves are essentially intact. - Labs CBC & Chem 7: 01/24/21 06:24 01/24/21 06:24 Labs: Abnormal Lab Results - Last 24 Hours (Table) 01/23/21 01/23/21 01/23/21 Range/Units 14:20 15:55 20:18 Lymphocytes # (1.0-4.8) k/uL BUN (9-20) mg/dL Glucose (74-99) mg/dL POC Glucose (mg/dL) 187 H (75-99) mg/dL Lactate Dehydrogenase (313-618) U/L C-Reactive Protein (<10.0) mg/L Procalcitonin 0.14 H (0.02-0.09) ng/mL Urine Protein (Negative) Urine Glucose (UA) (Negative) Urine Ketones (Negative) Urine Mucus (None) /hpf Coronavirus (PCR) Detected A (Not Detectd) 01/24/21 01/24/21 01/24/21 Range/Units 02:46 06:02 06:24 Lymphocytes # (1.0-4.8) k/uL BUN 21 H (9-20) mg/dL Glucose 166 H (74-99) mg/dL POC Glucose (mg/dL) 153 H (75-99) mg/dL Lactate Dehydrogenase 682 H (313-618) U/L C-Reactive Protein 159.7 H (<10.0) mg/L Procalcitonin (0.02-0.09) ng/mL Urine Protein 1+ H (Negative) Urine Glucose (UA) 4+ H (Negative) Urine Ketones 2+ H (Negative) Urine Mucus Rare H (None) /hpf Coronavirus (PCR) (Not Detectd) 01/24/21 Range/Units 06:24 Lymphocytes # 0.7 L (1.0-4.8) k/uL BUN (9-20) mg/dL Glucose (74-99) mg/dL POC Glucose (mg/dL) (75-99) mg/dL Lactate Dehydrogenase (313-618) U/L C-Reactive Protein (<10.0) mg/L Procalcitonin (0.02-0.09) ng/mL Urine Protein (Negative) Urine Glucose (UA) (Negative) Urine Ketones (Negative) Urine Mucus (None) /hpf Coronavirus (PCR) (Not Detectd) Assessment and Plan Plan: 1 Acute bilateral COVID 19 related pneumonia with secondary shortness of breath and hypoxic respiratory failure. The patient was diagnosed having the infection on 01/16/2021. 2 acute hypoxemia and shortness of breath secondary to above 3 constitutional symptoms in addition to generalized weakness, chills, fever, fatigue and loss in taste and smell secondary to COVID 19 infection 4 diabetes mellitus maintained on a combination of diabetic medication on outpatient basis 5 PTSD and the patient is disabled from the [employer] and is a 6 depression/bipolar disorder 7 hypothyroidism 8 hyperlipidemia 9 osteoarthritis Plan oxygen to maintain a saturation above 90%. Titrate the flow at 2 l per minute Decadron 6 mg by mouth daily Remdesivir per protocol day 12/26 1 unit of convalescent plasma Lovenox 40 mg subcu for DVT prophylaxis Check inflammatory markers including LDH and CRP and monitor the values Monitor the d-dimer at 0.49 home medication will close monitoring of the blood sugars a stable and the patient is improving We'll continue to follow
[2021-01-24 12:34] LABS: Glucose,Whole Blood 229 mg/dL (75-99)
[2021-01-24] MEDS: REMDESIVIR 100 MG in SODIUM CHLORIDE 0.9% 250 ML IVPB SCH (17:12)
[2021-01-24 17:24] LABS: Glucose,Whole Blood 175 mg/dL (75-99)
--- NOTE | 2021-01-24 19:28 | PN ---
PROGRESS NOTE DATE OF SERVICE: 01/24/2021. This 50-year-old gentleman admitted with acute COVID-19 pneumonia and bilateral interstitial pneumonia and acute hypoxic respiratory failure is being closely monitored. Dr. Lozano has seen the patient and the patient was started on Remdesivir at this time. The most recent chest x-ray which was reviewed by me showed bilateral pneumonic process. The patient is saturating 96% on 2 L. Past medical history reviewed. REVIEW OF SYSTEMS: CARDIOVASCULAR system: No angina. RESPIRATORY: As mentioned earlier. GI: As mentioned earlier. : No dysuria. NERVOUS SYSTEM: No numbness or weakness. CURRENT MEDICATIONS: Reviewed and include: [place], Xanax, Abilify, vitamin C, vitamin D3, Lovenox. Doses reviewed. PHYSICAL EXAMINATION: Alert and oriented times three. Pulse 90. Blood pressure 121/75, respiration 18, temperature 98.4, pulse ox 96% on 2 L. HEENT: Conjunctivae normal. Oral mucosa moist. NECK is no jugular venous distention. No carotid bruit. No lymph node enlargement. Cardiovascular system: S1, S2 muffled. No S3, no S4. RESPIRATORY: Breath sounds diminished in the bases. Bilateral scattered rhonchi and crackles. ABDOMEN: Soft. Nontender. NERVOUS SYSTEM: No focal deficits. LABORATORY DATA: CBC within normal limits. D-dimer is 0.49 and glucose is 229. CRP is 159.7. 1. Acute COVID-19 pneumonia with acute bilateral interstitial pneumonia as well as acute hypoxic respiratory failure, present on admission on Remdesivir. 2. Elevated D-dimer without any evidence of pulmonary embolism. 3. Hyponatremia. 4. Elevated random glucose and diabetes type 2. 5. Elevated CRP, inflammatory markers of COVID-19. 6. Gastroesophageal reflux disease. 7. Hearing deficit. 8. Hyperlipidemia. 9. History of degenerative joint disease. 10.History of bipolar/PTSD. 11.Obesity with body mass index of 31.9. 12.FULL CODE. RECOMMENDATIONS AND DISCUSSION: I recommend to continue current medication. Otherwise, continue the Remdesivir. Continue with bronchodilators. Continue with symptomatic and conservative line of management of Covid 19 as well. Continue with Lovenox. The overall prognosis guarded because of multiple complex medical issues and further recommendations to follow. MMODL / IJN: [id number] /
[2021-01-24 20:06] LABS: Glucose,Whole Blood 204 mg/dL (75-99)
[2021-01-24] MEDS: INSULIN DETEMIR (LEVEMIR) 100 UNIT/ML SYR SQ SCH (20:08)
[2021-01-25 06:08] LABS: Glucose,Whole Blood 134 mg/dL (75-99)
[2021-01-25] MEDS: LEVOTHYROXINE 50 MCG TAB PO SCH (06:30)
[2021-01-25] MEDS: glipiZIDE 5 MG TAB PO SCH ×2 (06:30→18:11)
[2021-01-25 09:02] LABS: Basophils % (A) 0 %; Eosinophils % (A) 0 %; HCT 43.7 % (39.0-53.0); HGB 14.1 gm/dL (13.0-17.5); Lymphocytes # (A) 1.6 k/uL (1.0-4.8); Lymphocytes % (A) 18 %; MCH 26.6 pg (25.0-35.0); MCHC 32.2 g/dL (31.0-37.0); MCV 82.7 fL (80.0-100.0); Mean Platelet Volume 8.2; Monocytes # (A) 0.6 k/uL (0-1.0); Monocytes % (A) 7 %; Neutrophils # (A) 6.4 k/uL (1.3-7.7); Neutrophils % (A) 72 %; Platelet Count 251 k/uL (150-450); RBC 5.28 m/uL (4.30-5.90); RDW 13.8 % (11.5-15.5); WBC 8.9 k/uL (3.8-10.6)
[2021-01-25] MEDS: dexAMETHasone 2 MG TAB PO SCH (09:08)
[2021-01-25] MEDS: LIDOCAINE 5% PATCH TOPICAL SCH (09:08)
[2021-01-25] MEDS: ASCORBIC ACID 500 MG TAB PO SCH (09:08)
[2021-01-25] MEDS: CHOLECALCIFEROL 25 MCG (1000 IU) TABLET PO SCH (09:08)
[2021-01-25] MEDS: QUEtiapine 100 MG TAB PO SCH ×3 (09:08→20:49)
[2021-01-25] MEDS: LINAGLIPTIN 5 MG TABLET PO SCH (09:08)
[2021-01-25] MEDS: ZINC SULFATE 220 MG CAP PO SCH (09:08)
[2021-01-25] MEDS: FLUoxetine HCL 20 MG CAP PO SCH (09:08)
[2021-01-25] MEDS: metFORMIN 500 MG TAB PO SCH ×2 (09:08→20:49)
[2021-01-25] MEDS: NON FORMULARY DRUG (Empagliflozin [Jardiance] 25 MG Tablet) PO SCH (09:09)
[2021-01-25] MEDS: FLUTICASONE 50MCG/SPRAY NASAL 16GM EA NOSTRIL SCH ×2 (09:09→20:48)
[2021-01-25] MEDS: ENOXAPARIN 40 MG/0.4 ML SYRINGE SQ SCH (09:09)
[2021-01-25 09:12] LABS: African American GFR (CKD) >90 (>60 ml/min/1.73 sqM); Anion Gap 8 mmol/L; Blood Urea Nitrogen 23 mg/dL (9-20); C Reactive Protein 66.8 mg/L (<10.0); Calcium 8.9 mg/dL (8.4-10.2); Carbon Dioxide 29 mmol/L (22-30); Chloride 105 mmol/L (98-107); Glucose 93 mg/dL (74-99); LDH 725 U/L (313-618); Non-African American GFR(CKD) >90 (>60 ml/min/1.73 sqM); Potassium 3.7 mmol/L (3.5-5.1); Sodium 142 mmol/L (137-145)
--- NOTE | 2021-01-25 10:07 | P.PN ---
Subjective Progress Note Date: 01/25/21 48-year-old male patient was hospitalized today through the emergency department because of worsening shortness of breath. The patient started having headache and tiredness and fatigue along with some chills and fever approximately a week ago and he went to [facility] and [place] where he was tested and he checked positive for COVID 19. Following that, the patient was sent home on no treatment and he was receiving only supportive treatment. The patient started getting progressively more shortness of breath and he started having increased cough and for that reason he came into the emergency department today where he was found to be tachycardic and hypoxic and he was placed on oxygen at 2 L per minute nasal cannula and the pulse ox is currently 95%. He is in sinus rhythm. He is afebrile. His blood work on today's evaluation shows a white second of 6.1, d-dimer is at 0.92, and the rest of the blood work shows normal electrolytes, normal renal function test, normal LFTs, troponins are negative, proBNP level was nonelevated. Inflammatory markers were not sent and they should. The chest x-ray showed some limited infiltrates and based on that the patient underwent a CT angios the chest that showed no evidence of any pulmonary embolism. There was vague interstitial and ground glass pulmonary infiltrate bilaterally more so in the right lower lobe. This was consistent with Covid 19 infection. For that reason, the patient was hospitalized. No altered mentation. He has loss in the face and the smell. No chest pain. No smoking. No history of COPD or asthma. He is diabetic and he takes a combination of treatment including Lantus, glipizide, Jardiance, ALOGLIPTIN. Noted the patient also had a low-grade fever at 100.3 on admission and currently is afebrile. on 01/24/2021, I'm seeing the patient for a follow-up. She is hospitalized for covert 19 pneumonia and secondary shortness of breath. She is currently on oxygen at 2 L with a pulse ox of 95%. She is afebrile. Her tachycardia has improved and the patient's heart rate has slowed down considerably knowing that she was quite tachycardic at time of admission. She is afebrile. Inflammatory markers for now show a LDH of 682 and a CRP level of 159. Her pro-calcitonin level was at 0.14. The chest x-ray from today showed limited interstitial infiltrates in the lung bases most on the left. There is some cardiomegaly. The patient is currently on Decadron and she is receiving 6 mg by mouth on a daily basis. She is also taken Remdesivir per protocol and she is on Lovenox , blood sugar is under adequate control for now. 01/25/21, the patient is being seen in follow-up regarding Covid 19 pneumonia. The patient is on oxygen at 2 L in the pulse ox is around 96%. He had chest x- ray that showed some limited interstitial infiltrates in lung bases most on the left along with some cardiomegaly. He remains on Decadron and is also taking Remdesivir per protocol grade 3/5 and he is also on Lovenox.. The patient's had blood work today that showed a white cell count of 8.9. Hemoglobin was 14.1. D-dimer was low at 0.44. CRP is at 66 and LDH level is at 725 and in comparison these numbers are down trending for CRP whereas LDH probably slightly higher. No fever for now. No other new complaints. Furthermore, were able to wean his FiO2 down and he was taken off the oxygen this morning and the patient within the pulse ox above 90%. He is feeling great. He has no specific complaints. Objective - Vital Signs Vital signs: Vital Signs Temp 98.0 F 01/25/21 03:27 Pulse 81 01/25/21 03:27 Resp 18 01/25/21 03:27 BP 128/77 01/25/21 03:27 Pulse Ox 96 01/25/21 03:27 Intake & Output 01/24/21 01/25/21 01/25/21 18:59 06:59 18:59 Intake Total 840 400 Balance 840 400 Weight 77 kg 74 kg Intake: Intake, IV Titration 400 Amount Sodium Chloride 0.9% 1, 400 000 ml @ 50 mls/hr IV . Q[facility]H [facility] Rx#:[id number] Oral 840 Other: Voiding Method Toilet Toilet Urinal # Voids 2 1 # Bowel Movements 1 - Exam The patient appeared well nourished and normally developed. Vital signs as documented. Head exam is unremarkable. No scleral icterus or corneal arcus noted. Neck is without jugular venous distension, thyromegaly, or carotid bruits. Carotid upstrokes are brisk bilaterally. Lungs are clear to auscultation and percussion. There were a few crackles in the the lung bases can be appreciated bilaterally Cardiac exam reveals the PMI to be normally sized and situated. Rhythm is regular. First and second heart sounds normal. No murmurs, rubs or gallops. Abdominal exam reveals normal bowel sounds, no masses, no organomegaly and no aortic enlargement. Extremities are nonedematous and both femoral and pedal pulses are normal.Examination of the skin revealed no evidence of significant rashes, suspicious appearing nevi or other concerning lesions.Neurologically, the patient is awake and alert and the patient does not have any focal neurological deficit. Cranial nerves are essentially intact. - Labs CBC & Chem 7: 01/25/21 08:25 01/25/21 08:25 Labs: Abnormal Lab Results - Last 24 Hours (Table) 01/24/21 01/24/21 01/24/21 Range/Units 11:58 17:04 20:04 BUN (9-20) mg/dL POC Glucose (mg/dL) 229 H 175 H 204 H (75-99) mg/dL Lactate Dehydrogenase (313-618) U/L C-Reactive Protein (<10.0) mg/L 01/25/21 01/25/21 Range/Units 06:04 08:25 BUN 23 H (9-20) mg/dL POC Glucose (mg/dL) 134 H (75-99) mg/dL Lactate Dehydrogenase 725 H (313-618) U/L C-Reactive Protein 66.8 H (<10.0) mg/L Microbiology - Last 24 Hours (Table) 01/23/21 14:20 Blood Culture - Preliminary Blood No Growth after 24 hours 01/23/21 14:20 Blood Culture - Preliminary Blood No Growth after 24 hours Assessment and Plan Plan: 1 Acute bilateral COVID 19 related pneumonia with secondary shortness of breath and hypoxic respiratory failure. The patient was diagnosed having the infection on 01/16/2021. Clinically the patient is improved considerably. He is currently on room air oxygen. He is completing the treatment for Covid 19. No new symptoms for now. He feels that he is recovering. CRP is down trending. LDH is slightly elevated. 2 acute hypoxemia and shortness of breath secondary to above 3 constitutional symptoms in addition to generalized weakness, chills, fever, fatigue and loss in taste and smell secondary to COVID 19 infection 4 diabetes mellitus maintained on a combination of diabetic medication on outpatient basis 5 PTSD and the patient is disabled from the [employer] and is a 6 depression/bipolar disorder 7 hypothyroidism 8 hyperlipidemia 9 osteoarthritis Plan oxygen to maintain a saturation above 90%. Currently on room air oxygen Decadron 6 mg by mouth daily Remdesivir per protocol day 01/23 1 unit of convalescent plasma has been administered at a time of admission Lovenox 40 mg subcu for DVT prophylaxis Check inflammatory markers including LDH and CRP and monitor the values, CRP is dropping, LDH is slightly elevated Monitor the d-dimer at 0.49 and the patient is on Lovenox stable and the patient is improving We'll continue to follow
[2021-01-25 12:22] LABS: Glucose,Whole Blood 91 mg/dL (75-99)
[2021-01-25 17:21] LABS: Glucose,Whole Blood 177 mg/dL (75-99)
[2021-01-25] MEDS: REMDESIVIR 100 MG in SODIUM CHLORIDE 0.9% 250 ML IVPB SCH (18:11)
[2021-01-25] MEDS: SODIUM CHLORIDE 0.9% 1,000 ML IV SCH (18:15)
--- NOTE | 2021-01-25 19:12 | PN ---
PROGRESS NOTE DATE OF SERVICE: 01/25/2021 This 50-year-old gentleman who was admitted with acute COVID-19 infection also had bilateral interstitial pneumonia. The patient was also seen by Dr. Lozano and the patient is started on Remdesivir at this time. Patient is slightly hypoxic. There is no history of any fever, rigors or chills. PAST MEDICAL HISTORY: Reviewed. REVIEW OF SYSTEMS: CARDIOVASCULAR: No angina. RESPIRATORY: As mentioned earlier. GI: As mentioned earlier. NERVOUS SYSTEM: No numbness or weakness. CURRENT MEDS: Reviewed and include [place], Ventolin, Xanax, Abilify, vitamin C, vitamin D3, Hexadrol. Doses reviewed. PHYSICAL EXAMINATION: Alert and oriented x3. Pulse 86, blood pressure 130/76, respiration 18, temperature 97.4, pulse ox 94% on 2 L. HEENT: Conjunctivae normal. Oral mucosa moist. NECK: No jugular venous distention. No lymph node enlargement. CARDIOVASCULAR: S1, S2, muffled. No S3, no S4, RESPIRATORY: Diminished breath sounds at the bases. A few scattered rhonchi and crackles. ABDOMEN: Soft, nontender. LEGS: No edema, no swelling. NERVOUS SYSTEM: No focal motor or sensory deficits. LABS: CBC within normal see. CRP is 661. LDH is 725. C difficile is negative. ASSESSMENT: 1. Acute COVID-19 pneumonia with acute bilateral interstitial viral pneumonia as well as acute hypoxic respiratory failure, present on admission, on Remdesivir. 2. Elevated D-dimer without any evidence of pulmonary embolism. 3. Hyponatremia. 4. Elevated random glucose, diabetes mellitus type 2. 5. Elevated CRP inflammatory markers of COVID-19. 6. Gastroesophageal reflux disease. 7. Hearing deficits. 8. Hyperlipidemia. 9. History of degenerative joint disease. 10.History of bipolar, PTSD. 11.Obesity with body mass index of 31.8. 12.FULL CODE. RECOMMENDATIONS AND DISCUSSION: Continue current management,continue symptomatic treatment and continue the bronchodilators. Continue with Remdesivir. Continue with steroids. Continue zinc and vitamins. Monitor closely. Ensure oxygenation. Closely follow with Dr. Lozano. Prognosis is extremely guarded because of multiple complex medical issues. Further recommendations to follow. MMODL / IJN: [id number] /
[2021-01-25 20:35] LABS: Glucose,Whole Blood 244 mg/dL (75-99)
[2021-01-25] MEDS: INSULIN DETEMIR (LEVEMIR) 100 UNIT/ML SYR SQ SCH (20:49)
[2021-01-26 06:05] LABS: Glucose,Whole Blood 186 mg/dL (75-99)
[2021-01-26] MEDS: glipiZIDE 5 MG TAB PO SCH ×2 (06:41→17:52)
[2021-01-26] MEDS: LEVOTHYROXINE 50 MCG TAB PO SCH (06:41)
[2021-01-26 08:25] LABS: Basophils % (A) 0 %; Eosinophils % (A) 0 %; HCT 41.3 % (39.0-53.0); HGB 13.5 gm/dL (13.0-17.5); Lymphocytes # (A) 1.8 k/uL (1.0-4.8); Lymphocytes % (A) 23 %; MCH 26.8 pg (25.0-35.0); MCHC 32.7 g/dL (31.0-37.0); MCV 82.1 fL (80.0-100.0); Monocytes # (A) 0.6 k/uL (0-1.0); Monocytes % (A) 8 %; Neutrophils # (A) 5.1 k/uL (1.3-7.7); Neutrophils % (A) 67 %; Platelet Count 248 k/uL (150-450); RBC 5.03 m/uL (4.30-5.90); RDW 13.9 % (11.5-15.5); WBC 7.6 k/uL (3.8-10.6)
[2021-01-26 08:32] LABS: African American GFR (CKD) >90 (>60 ml/min/1.73 sqM); Anion Gap 8 mmol/L; Blood Urea Nitrogen 21 mg/dL (9-20); Calcium 8.4 mg/dL (8.4-10.2); Carbon Dioxide 28 mmol/L (22-30); Chloride 105 mmol/L (98-107); Glucose 157 mg/dL (74-99); LDH 606 U/L (313-618); Non-African American GFR(CKD) >90 (>60 ml/min/1.73 sqM); Potassium 3.5 mmol/L (3.5-5.1); Sodium 141 mmol/L (137-145)
[2021-01-26] MEDS: CHOLECALCIFEROL 25 MCG (1000 IU) TABLET PO SCH (09:06)
[2021-01-26] MEDS: metFORMIN 500 MG TAB PO SCH ×2 (09:06→19:39)
[2021-01-26] MEDS: FLUoxetine HCL 20 MG CAP PO SCH (09:06)
[2021-01-26] MEDS: LINAGLIPTIN 5 MG TABLET PO SCH (09:07)
[2021-01-26] MEDS: dexAMETHasone 2 MG TAB PO SCH (09:07)
[2021-01-26] MEDS: QUEtiapine 100 MG TAB PO SCH ×3 (09:07→19:40)
[2021-01-26] MEDS: ASCORBIC ACID 500 MG TAB PO SCH (09:07)
[2021-01-26] MEDS: ZINC SULFATE 220 MG CAP PO SCH (09:07)
[2021-01-26] MEDS: LIDOCAINE 5% PATCH TOPICAL SCH (09:08)
[2021-01-26] MEDS: ENOXAPARIN 40 MG/0.4 ML SYRINGE SQ SCH (09:08)
[2021-01-26] MEDS: FLUTICASONE 50MCG/SPRAY NASAL 16GM EA NOSTRIL SCH ×2 (09:09→19:40)
[2021-01-26] MEDS: NON FORMULARY DRUG (Empagliflozin [Jardiance] 25 MG Tablet) PO SCH (09:21)
[2021-01-26 09:38] LABS: C Reactive Protein 43.1 mg/L (<10.0)
[2021-01-26 12:02] LABS: Glucose,Whole Blood 144 mg/dL (75-99)
[2021-01-26] MEDS ORDERED: Potassium Replacement Protocol 1 EACH MISC MISCELLANE PRN (12:35)
--- NOTE | 2021-01-26 15:00 | P.PN ---
Subjective Progress Note Date: 01/26/21 Principal diagnosis: Worsening shortness of breath, COVID 19 48-year-old male patient was hospitalized today through the emergency department because of worsening shortness of breath. The patient started having headache and tiredness and fatigue along with some chills and fever approximately a week ago and he went to [facility] and [place] where he was tested and he checked positive for COVID 19. Following that, the patient was sent home on no treatment and he was receiving only supportive treatment. The patient started getting progressively more shortness of breath and he started having increased cough and for that reason he came into the emergency department today where he was found to be tachycardic and hypoxic and he was placed on oxygen at 2 L per minute nasal cannula and the pulse ox is currently 95%. He is in sinus rhythm. He is afebrile. His blood work on today's evaluation shows a white second of 6.1, d-dimer is at 0.92, and the rest of the blood work shows normal electrolytes, normal renal function test, normal LFTs, troponins are negative, proBNP level was nonelevated. Inflammatory markers were not sent and they should. The chest x-ray showed some limited infiltrates and based on that the patient underwent a CT angios the chest that showed no evidence of any pulmonary embolism. There was vague interstitial and ground glass pulmonary infiltrate bilaterally more so in the right lower lobe. This was consistent with Covid 19 infection. For that reason, the patient was hospitalized. No altered mentation. He has loss in the face and the smell. No chest pain. No smoking. No history of COPD or asthma. He is diabetic and he takes a combination of treatment including Lantus, glipizide, Jardiance, ALOGLIPTIN. Noted the patient also had a low-grade fever at 100.3 on admission and currently is afebrile. on 01/24/2021, I'm seeing the patient for a follow-up. She is hospitalized for covert 19 pneumonia and secondary shortness of breath. She is currently on oxygen at 2 L with a pulse ox of 95%. She is afebrile. Her tachycardia has improved and the patient's heart rate has slowed down considerably knowing that she was quite tachycardic at time of admission. She is afebrile. Inflammatory markers for now show a LDH of 682 and a CRP level of 159. Her pro-calcitonin level was at 0.14. The chest x-ray from today showed limited interstitial infiltrates in the lung bases most on the left. There is some cardiomegaly. The patient is currently on Decadron and she is receiving 6 mg by mouth on a daily basis. She is also taken Remdesivir per protocol and she is on Lovenox , blood sugar is under adequate control for now. 01/25/21, the patient is being seen in follow-up regarding Covid 19 pneumonia. The patient is on oxygen at 2 L in the pulse ox is around 96%. He had chest x- ray that showed some limited interstitial infiltrates in lung bases most on the left along with some cardiomegaly. He remains on Decadron and is also taking Remdesivir per protocol grade 3/5 and he is also on Lovenox.. The patient's had blood work today that showed a white cell count of 8.9. Hemoglobin was 14.1. D-dimer was low at 0.44. CRP is at 66 and LDH level is at 725 and in comparison these numbers are down trending for CRP whereas LDH probably slightly higher. No fever for now. No other new complaints. Furthermore, were able to wean his FiO2 down and he was taken off the oxygen this morning and the patient within the pulse ox above 90%. He is feeling great. He has no specific complaints. On 01/26/2021 patient seen in follow-up on selective care unit, she states she is feeling better, she sounds improved on today's exam, she is on room air pulse ox is 93-95%, no fever or chills, vital signs have been stable, today is day 4 of Remdesivir treatment, she will receive her final dose tomorrow, she continues on Decadron, vitamin C D and zinc, she is on prophylactic dose Lovenox. Her last chest x-ray was on 01/24/2021 showing vague patchy bilateral densities. Today's lab work shows improving inflammatory markers, LDH is 606, and CRP is 43.1, pro-calcitonin level was low at 0.14, d-dimer is -0.38 Objective - Vital Signs Vital signs: Vital Signs Temp 98.1 F 01/26/21 09:00 Pulse 80 01/26/21 12:30 Resp 16 01/26/21 12:30 BP 132/73 01/26/21 12:30 Pulse Ox 93 L 01/26/21 12:30 Intake & Output 01/25/21 01/26/21 01/26/21 18:59 06:59 18:59 Intake Total 1680 720 890 Balance 1680 720 890 Weight 71.5 kg Intake: Intake, IV Titration 400 Amount Sodium Chloride 0.9% 1, 400 000 ml @ 50 mls/hr IV . Q20H [facility] Rx#:[id number] Oral 1680 765 396 Other: Voiding Method Toilet Toilet Toilet # Voids 1 1 - Exam GENERAL EXAM: Alert, very pleasant, 50-year-old white female, on room air with a pulse ox of 93-95%, comfortable in no apparent distress. HEAD: Normocephalic/atraumatic. EYES: Normal reaction of pupils, equal size. Conjunctiva pink, sclera white. NOSE: Clear with pink turbinates. THROAT: No erythema or exudates. NECK: No masses, no JVD, no thyroid enlargement, no adenopathy. CHEST: No chest wall deformity. Symmetrical expansion. LUNGS: Equal air entry with no crackles, wheeze, rhonchi or dullness. CVS: Regular rate and rhythm, normal S1 and S2, no gallops, no murmurs, no rubs ABDOMEN: Soft, nontender. No hepatosplenomegaly, normal bowel sounds, no guarding or rigidity. EXTREMITIES: No clubbing, no edema, no cyanosis, 2+ pulses and upper and lower extremities. MUSCULOSKELETAL: Muscle strength and tone normal. SPINE: No scoliosis or deformity SKIN: No rashes CENTRAL NERVOUS SYSTEM: Alert and oriented -3. No focal deficits, tone is normal in all 4 extremities. PSYCHIATRIC: Alert and oriented -3. Appropriate affect. Intact judgment and insight. - Labs CBC & Chem 7: 01/26/21 08:01 01/26/21 08:01 Labs: Abnormal Lab Results - Last 24 Hours (Table) 01/25/21 01/25/21 01/26/21 Range/Units 17:18 20:34 05:57 BUN (9-20) mg/dL Glucose (74-99) mg/dL POC Glucose (mg/dL) 177 H 244 H 186 H (75-99) mg/dL C-Reactive Protein (<10.0) mg/L 01/26/21 01/26/21 Range/Units 08:01 12:00 BUN 21 H (9-20) mg/dL Glucose 157 H (74-99) mg/dL POC Glucose (mg/dL) 144 H (75-99) mg/dL C-Reactive Protein 43.1 H (<10.0) mg/L Microbiology - Last 24 Hours (Table) 01/23/21 14:20 Blood Culture - Preliminary Blood No Growth after 48 hours 01/23/21 14:20 Blood Culture - Preliminary Blood No Growth after 48 hours Assessment and Plan Plan: Assessment: 1 Acute bilateral COVID 19 related pneumonia with secondary shortness of breath and hypoxic respiratory failure. The patient was diagnosed having the infection on 01/16/2021. Clinically the patient is improved considerably. He is currently on room air oxygen. He is completing the treatment for Covid 19. No new symptoms for now. He feels that he is recovering. CRP is down trending. LDH is slightly elevated. 2 acute hypoxemia and shortness of breath secondary to above 3 constitutional symptoms in addition to generalized weakness, chills, fever, fatigue and loss in taste and smell secondary to COVID 19 infection 4 diabetes mellitus maintained on a combination of diabetic medication on outpatient basis 5 PTSD and the patient is disabled from the [employer] and is a 6 depression/bipolar disorder 7 hypothyroidism 8 hyperlipidemia 9 osteoarthritis Plan: Continue current medical treatment, continue Decadron, patient is improving, inflammatory markers are improving, patient is on room air, no worsening dys pnea, continue prophylactic dose of Lovenox, increase activity as tolerated, patient will finish her Remdesivir treatment tomorrow, she may be considered for discharge home at that time if she remains stable and continues to improve. She will need outpatient follow-up with Dr. Lozano in the office in one or 2 week I performed a history & physical examination of the patient and discussed their management with my nurse practitioner, Becca Poe. I reviewed the nurse practitioner's note and agree with the documented findings and plan of care. Lung sounds are positive for diminished breath sounds. The findings and the impression was discussed with the patient. I attest to the documentation by the nurse practitioner. Time with Patient: Less than 30
[2021-01-26] MEDS: REMDESIVIR 100 MG in SODIUM CHLORIDE 0.9% 250 ML IVPB SCH (15:45)
[2021-01-26] MEDS: POTASSIUM CHLORIDE ER 20 MEQ TAB.ER PO SCH ×2 (15:45→17:52)
[2021-01-26] MEDS: SODIUM CHLORIDE 0.9% 1,000 ML IV SCH (15:47)
[2021-01-26 17:13] LABS: Glucose,Whole Blood 261 mg/dL (75-99)
--- NOTE | 2021-01-26 17:53 | PN ---
PROGRESS NOTE DATE OF SERVICE: 02/05/2021 INTERVAL HISTORY: This 50-year-old gentleman who was admitted with acute COVID-19 pneumonia is also receiving remdesivir. Patient closely monitored. Dr. Bond is following the patient closely. The patient is saturating over 93% on room air. The most recent chest x-ray was personally reviewed by me. Other labs are reviewed. PAST MEDICAL HISTORY: Reviewed. REVIEW OF SYSTEMS: CARDIOVASCULAR: No angina. RESPIRATORY: As mentioned earlier. GI: As mentioned earlier. : No dysuria. NERVOUS SYSTEM: No numbness or weakness. CURRENT MEDICATIONS: Reviewed and include Graham, Ventolin, Xanax, Abilify, vitamin C, vitamin D3. Doses reviewed. PHYSICAL EXAMINATION: GENERAL: Patient is alert and oriented times three. VITAL SIGNS: Pulse 88, blood pressure 133/83, respirations 18, temperature 97.6, pulse ox 93% on room air. HEENT: Conjunctivae normal. Oral mucosa moist. NECK: No jugular venous distention. No carotid bruits. No lymph node enlargement. RESPIRATORY: Breath sounds diminished at the bases. A few scattered rhonchi. HEART: S1 and S2, muffled. ABDOMEN: Soft, no tenderness. No masses palpable. EXTREMITIES: No edema, no swelling. NERVOUS: No focal deficits. LABS: CBC within normal. D-dimer 0.38, glucose 157. C-reactive protein is 43.1. ASSESSMENT: 1. Acute COVID-19 pneumonia with acute bilateral interstitial pneumonia as well as acute hypoxic respiratory failure present on admission. On remdesivir. 2. Elevated D-dimer without any evidence of acute pulmonary embolism. 3. Hyponatremia. 4. Elevated random glucose with diabetes mellitus type 2. 5. Elevated CRP and inflammatory markers for COVID-19. 6. Gastroesophageal reflux disease. 7. Hearing deficits. 8. Hyperlipidemia. 9. History of degenerative joint disease. 10.History of bipolar and post-traumatic stress disorder. 11.Obesity with body mass index of 31.8. 12.FULL CODE. RECOMMENDATIONS AND DISCUSSION: I recommend to continue current management, continue with monitoring and symptomatic treatment. Otherwise, at this time I recommend continue with remdesivir. Continue the rest of the medications. Ensure oxygenation. Incentive spirometry. Closely follow with Dr. Bond's. Prognosis guarded. MMODL / IJN: [id number] /
[2021-01-26 19:39] VITALS: TEMP 97.8
[2021-01-26] MEDS: INSULIN DETEMIR (LEVEMIR) 100 UNIT/ML SYR SQ SCH (19:39)
[2021-01-26 21:04] LABS: Glucose,Whole Blood 334 mg/dL (75-99)
[2021-01-27 00:28] VITALS: RESP 18
[2021-01-27 06:35] LABS: Glucose,Whole Blood 152 mg/dL (75-99)
[2021-01-27] MEDS: LEVOTHYROXINE 50 MCG TAB PO SCH (06:42)
[2021-01-27] MEDS: glipiZIDE 5 MG TAB PO SCH (06:42)
[2021-01-27 08:30] LABS: C Reactive Protein 38.8 mg/L (<10.0)
[2021-01-27] MEDS: CHOLECALCIFEROL 25 MCG (1000 IU) TABLET PO SCH (08:49)
[2021-01-27] MEDS: SODIUM CHLORIDE 0.9% 1,000 ML IV SCH (08:49)
[2021-01-27] MEDS: ZINC SULFATE 220 MG CAP PO SCH (08:49)
[2021-01-27] MEDS: ENOXAPARIN 40 MG/0.4 ML SYRINGE SQ SCH (08:50)
[2021-01-27] MEDS: dexAMETHasone 2 MG TAB PO SCH (08:50)
[2021-01-27] MEDS: metFORMIN 500 MG TAB PO SCH (08:50)
[2021-01-27] MEDS: ASCORBIC ACID 500 MG TAB PO SCH (08:50)
[2021-01-27] MEDS: FLUoxetine HCL 20 MG CAP PO SCH (08:50)
[2021-01-27] MEDS: LINAGLIPTIN 5 MG TABLET PO SCH (08:50)
[2021-01-27] MEDS: LIDOCAINE 5% PATCH TOPICAL SCH (08:53)
[2021-01-27] MEDS: QUEtiapine 100 MG TAB PO SCH (08:53)
[2021-01-27] MEDS: FLUTICASONE 50MCG/SPRAY NASAL 16GM EA NOSTRIL SCH (08:54)
[2021-01-27] MEDS: NON FORMULARY DRUG (Empagliflozin [Jardiance] 25 MG Tablet) PO SCH (09:03)
[2021-01-27 11:34] VITALS: BP 154/93
[2021-01-27 11:53] LABS: Glucose,Whole Blood 102 mg/dL (75-99)
[2021-01-27 13:24] VITALS: PULSE 66
[2021-01-27] MEDS: REMDESIVIR 100 MG in SODIUM CHLORIDE 0.9% 250 ML IVPB SCH (15:30)
--- NOTE | 2021-01-27 16:00 | P.PN ---
Subjective Progress Note Date: 01/27/21 Principal diagnosis: Worsening shortness of breath, COVID 19 48-year-old male patient was hospitalized today through the emergency department because of worsening shortness of breath. The patient started having headache and tiredness and fatigue along with some chills and fever approximately a week ago and he went to [facility] [place] and [place] where he was tested and he checked positive for COVID 19. Following that, the patient was sent home on no treatment and he was receiving only supportive treatment. The patient started getting progressively more shortness of breath and he started having increased cough and for that reason he came into the emergency department today where he was found to be tachycardic and hypoxic and he was placed on oxygen at 2 L per minute nasal cannula and the pulse ox is currently 95%. He is in sinus rhythm. He is afebrile. His blood work on today's evaluation shows a white second of 6.1, d-dimer is at 0.92, and the rest of the blood work shows normal electrolytes, normal renal function test, normal LFTs, troponins are negative, proBNP level was nonelevated. Inflammatory markers were not sent and they should. The chest x-ray showed some limited infiltrates and based on that the patient underwent a CT angios the chest that showed no evidence of any pulmonary embolism. There was vague interstitial and ground glass pulmonary infiltrate bilaterally more so in the right lower lobe. This was consistent with Covid 19 infection. For that reason, the patient was hospitalized. No altered mentation. He has loss in the face and the smell. No chest pain. No smoking. No history of COPD or asthma. He is diabetic and he takes a combination of treatment including Lantus, glipizide, Jardiance, ALOGLIPTIN. Noted the patient also had a low-grade fever at 100.3 on admission and currently is afebrile. on 01/24/2021, I'm seeing the patient for a follow-up. She is hospitalized for covert 19 pneumonia and secondary shortness of breath. She is currently on oxygen at 2 L with a pulse ox of 95%. She is afebrile. Her tachycardia has improved and the patient's heart rate has slowed down considerably knowing that she was quite tachycardic at time of admission. She is afebrile. Inflammatory markers for now show a LDH of 682 and a CRP level of 159. Her pro-calcitonin level was at 0.14. The chest x-ray from today showed limited interstitial infiltrates in the lung bases most on the left. There is some cardiomegaly. The patient is currently on Decadron and she is receiving 6 mg by mouth on a daily basis. She is also taken Remdesivir per protocol and she is on Lovenox , blood sugar is under adequate control for now. 01/25/21, the patient is being seen in follow-up regarding Covid 19 pneumonia. The patient is on oxygen at 2 L in the pulse ox is around 96%. He had chest x- ray that showed some limited interstitial infiltrates in lung bases most on the left along with some cardiomegaly. He remains on Decadron and is also taking Remdesivir per protocol grade 3/5 and he is also on Lovenox.. The patient's had blood work today that showed a white cell count of 8.9. Hemoglobin was 14.1. D-dimer was low at 0.44. CRP is at 66 and LDH level is at 725 and in comparison these numbers are down trending for CRP whereas LDH probably slightly higher. No fever for now. No other new complaints. Furthermore, were able to wean his FiO2 down and he was taken off the oxygen this morning and the patient within the pulse ox above 90%. He is feeling great. He has no specific complaints. On 01/26/2021 patient seen in follow-up on selective care unit, she states she is feeling better, she sounds improved on today's exam, she is on room air pulse ox is 93-95%, no fever or chills, vital signs have been stable, today is day 4 of Remdesivir treatment, she will receive her final dose tomorrow, she continues on Decadron, vitamin C D and zinc, she is on prophylactic dose Lovenox. Her last chest x-ray was on 01/24/2021 showing vague patchy bilateral densities. Today's lab work shows improving inflammatory markers, LDH is 606, and CRP is 43.1, pro-calcitonin level was low at 0.14, d-dimer is -0.38 On 01/27/2021 patient seen in follow-up on selective care unit, she is awake and alert, in no acute distress, today's her last day of Remdesivir treatment, room air pulse ox is 96-99%, overall she is feeling much better, no Increased chest discomfort, no worsening cough, no fever or chills no abdominal pain nausea or vomiting, today's labs have been reviewed, her DH is 600, CRP has improved since admission and is down to 38.8 today, however d-dimer was 0.48. Patient continues on Decadron, prophylactic Lovenox. She continues on gentle IV hydration with 0.9 normal saline at a rate of 50 ML per hour, she is on multivitamins. Objective - Vital Signs Vital signs: Vital Signs Temp 97.8 F 01/27/21 08:00 Pulse 66 01/27/21 12:00 Resp 18 01/27/21 03:10 BP 154/93 01/27/21 08:00 Pulse Ox 96 01/27/21 12:00 Intake & Output 01/26/21 01/27/21 01/27/21 18:59 06:59 18:59 Intake Total 1820 1650 Balance 1820 1650 Weight 74 kg Intake: Intake, IV Titration 650 150 Amount Remdesivir 100 mg In 250 Sodium Chloride 0.9% 250 ml @ 250 mls/hr IVPB Q24H [facility] Rx#:[id number] Sodium Chloride 0.9% 1, 400 150 000 ml @ 50 mls/hr IV . Q20H [facility] Rx#:[id number] Oral 1170 1500 Other: Voiding Method Toilet Toilet # Voids 1 1 - Exam GENERAL EXAM: Alert, very pleasant, 50-year-old white female, on room air with a pulse ox of 93-95%, comfortable in no apparent distress. HEAD: Normocephalic/atraumatic. EYES: Normal reaction of pupils, equal size. Conjunctiva pink, sclera white. NOSE: Clear with pink turbinates. THROAT: No erythema or exudates. NECK: No masses, no JVD, no thyroid enlargement, no adenopathy. CHEST: No chest wall deformity. Symmetrical expansion. LUNGS: Equal air entry with no crackles, wheeze, rhonchi or dullness. CVS: Regular rate and rhythm, normal S1 and S2, no gallops, no murmurs, no rubs ABDOMEN: Soft, nontender. No hepatosplenomegaly, normal bowel sounds, no guarding or rigidity. EXTREMITIES: No clubbing, no edema, no cyanosis, 2+ pulses and upper and lower extremities. MUSCULOSKELETAL: Muscle strength and tone normal. SPINE: No scoliosis or deformity SKIN: No rashes CENTRAL NERVOUS SYSTEM: Alert and oriented -3. No focal deficits, tone is normal in all 4 extremities. PSYCHIATRIC: Alert and oriented -3. Appropriate affect. Intact judgment and i nsight. - Labs CBC & Chem 7: 01/26/21 08:01 01/26/21 08:01 Labs: Abnormal Lab Results - Last 24 Hours (Table) 01/26/21 01/26/21 01/27/21 Range/Units 17:11 21:03 06:33 POC Glucose (mg/dL) 261 H 334 H 152 H (75-99) mg/dL C-Reactive Protein (<10.0) mg/L 01/27/21 01/27/21 Range/Units 07:10 11:50 POC Glucose (mg/dL) 102 H (75-99) mg/dL C-Reactive Protein 38.8 H (<10.0) mg/L Microbiology - Last 24 Hours (Table) 01/23/21 14:20 Blood Culture - Preliminary Blood No Growth after 72 hours 01/23/21 14:20 Blood Culture - Preliminary Blood No Growth after 72 hours Assessment and Plan Plan: Assessment: 1 Acute bilateral COVID 19 related pneumonia with secondary shortness of breath and hypoxic respiratory failure. The patient was diagnosed having the infection on 01/16/2021. Clinically the patient is improved considerably. He is currently on room air oxygen. He is completing the treatment for Covid 19. No new symptoms for now. He feels that he is recovering. CRP is down trending. LDH is slightly elevated. 2 acute hypoxemia and shortness of breath secondary to above 3 constitutional symptoms in addition to generalized weakness, chills, fever, fatigue and loss in taste and smell secondary to COVID 19 infection 4 diabetes mellitus maintained on a combination of diabetic medication on outpatient basis 5 PTSD and the patient is disabled from the [employer] and is a 6 depression/bipolar disorder 7 hypothyroidism 8 hyperlipidemia 9 osteoarthritis Plan: Patient has remained stable, she is on room air, maintaining stable O2 saturations, today's her last dose of Remdesivir, she can be considered for discharge home today. She can finish a total of 10 day course of Decadron including what she has received in the hospital. labs have been reviewed, inflammatory markers have improved, d-dimer is within normal limits, increase activity as tolerated, patient will need outpatient follow-up with Dr. Lozano in the office in 2-3 weeks I performed a history & physical examination of the patient and discussed their management with my nurse practitioner, Becca Poe. I reviewed the nurse practitioner's note and agree with the documented findings and plan of care. Lung sounds are positive for diminished breath sounds. The findings and the impression was discussed with the patient. I attest to the documentation by the nurse practitioner. Time with Patient: Less than 30
--- NOTE | 2021-01-27 16:53 | P.DS ---
Providers Date of admission: 01/23/21 13:05 Expected date of discharge: 01/27/21 Attending physician: Charis Cesar Consults: 01/23/21 12:58 Consult Physician Routine Consulting Provider: Getachew Lozano Consult Reason/Comments: Pneumonia, bronchospasm,Covid 19 Do you want consulting provider notified?: Yes Primary care physician: [facility] Hospital Course: Final diagnosis Acute Covid 19 pneumonia with acute bilateral interstitial pneumonia as well as acute hypoxic respiratory failure, present on admission. Completed Remdesivir Elevated d-dimer without any evidence of acute pulmonary embolism hyponatremia elevated random glucose with diabetes mellitus type 2 elevated CRP and inflammatory markers for Covid 19 Gastroesophageal reflux disease Hearing deficits Hyperlipidemia history of degenerative joint disease history of bipolar and post-traumatic stress disorder Obesity with a body mass index of 31.8 Full code Discharge disposition Patient is being discharged in a stable condition with guarded prognosis to home. Patient will follow-up with [facility] upon discharge. Patient also instructed to follow-up with pulmonary Dr. Lozano in the outpatient setting. Patient will continue with oral dexamethasone along with vitamin supplements upon discharge. Total time taken is greater than 35 minutes. History of present illness This is a 50-year-old male who was recently admitted with acute Covid 19 pneumonia and was being closely monitored. Patient was seen and evaluated by pulmonary and being followed closely. Patient was maintained on dexamethasone along with Lovenox and vitamin supplements and will continue with dexamethasone along with vitamin supplements to complete the course. Patient also receiving Remdesivir and has completed the course. Patient will be following up with pulmonary in the outpatient setting. Patient is requesting to go home. ReCommended repeat labs in the outpatient setting and instructed the patient to continue to isolate, wear a mask, monitor for fever, encourage fluids and rest. Currently no reports of chest pain, worsening shortness of breath, or palpitations. Patient is afebrile. No reports of nausea or vomiting and patient is tolerating diet. On exam vital signs are stable. Cardio S1, S2 are muffled. Respiratory shows diminished breath sounds at the bases with no wheezing or rhonchi noted. Abdomen is soft and nontender. Nervous system shows no focal deficits. Please refer to medication reconciliation sheet for a list of medications. Patient Condition at Discharge: Fair Plan - Discharge Summary Discharge Rx Participant: No New Discharge Prescriptions: New dexAMETHasone [Hexadrol] 6 mg PO DAILY 6 Days #18 tab Zinc Sulfate [Orazinc] 220 mg PO DAILY 30 Days #30 cap Albuterol Inhaler [Ventolin Hfa Inhaler] 2 puff INHALATION RT-Q4H PRN 30 Days #1 puff PRN Reason: Shortness Of Breath Or Wheezing Ascorbic Acid [Vitamin C] 500 mg PO DAILY 30 Days #30 tab Continue Levothyroxine Sodium [Synthroid] 50 mcg PO DAILY Cholecalciferol [Vitamin D3 (25 Mcg = 1000 Iu)] 50 mcg PO DAILY Naproxen [Naprosyn] 500 mg PO BID PRN PRN Reason: Pain or Inflammation Lidocaine 5% Patch [Lidoderm 5% Patch] 1 patch TRANSDERM DAILY Temazepam [Restoril] 30 - 60 mg PO HS PRN PRN Reason: Insomnia QUEtiapine FUMARATE [SEROquel] 300 mg PO TID FLUoxetine HCL [PROzac] 60 mg PO DAILY metFORMIN HCL 1,000 mg PO BID Sildenafil Citrate 100 mg PO DAILY PRN PRN Reason: E.D. Insulin Glargine,Hum.rec.anlog [Lantus Solostar] 50 unit SQ HS ARIPiprazole [Abilify] 20 mg PO DAILY glipiZIDE [Glucotrol] 5 mg PO AC-BID Fluticasone Nasal [place] [Flonase Nasal [place]] 1 spr EA NOSTRIL BID Empagliflozin [Jardiance] 25 mg PO DAILY Alogliptin Benzoate [Alogliptin] 25 mg PO DAILY Discharge Medication List ARIPiprazole [Abilify] 20 mg PO DAILY 01/23/21 [History] Alogliptin Benzoate [Alogliptin] 25 mg PO DAILY 01/23/21 [History] Cholecalciferol [Vitamin D3 (25 Mcg = 1000 Iu)] 50 mcg PO DAILY 01/23/21 [History] Empagliflozin [Jardiance] 25 mg PO DAILY 01/23/21 [History] FLUoxetine HCL [PROzac] 60 mg PO DAILY 01/23/21 [History] Fluticasone Nasal [place] [Flonase Nasal [place]] 1 spr EA NOSTRIL BID 01/23/21 [History] Insulin Glargine,Hum.rec.anlog [Lantus Solostar] 50 unit SQ HS 01/23/21 [History] Levothyroxine Sodium [Synthroid] 50 mcg PO DAILY 01/23/21 [History] Lidocaine 5% Patch [Lidoderm 5% Patch] 1 patch TRANSDERM DAILY 01/23/21 [History] Naproxen [Naprosyn] 500 mg PO BID PRN 01/23/21 [History] QUEtiapine FUMARATE [SEROquel] 300 mg PO TID 01/23/21 [History] Sildenafil Citrate 100 mg PO DAILY PRN 01/23/21 [History] Temazepam [Restoril] 30 - 60 mg PO HS PRN 01/23/21 [History] glipiZIDE [Glucotrol] 5 mg PO AC-BID 01/23/21 [History] metFORMIN HCL 1,000 mg PO BID 01/23/21 [History] Albuterol Inhaler [Ventolin Hfa Inhaler] 2 puff INHALATION RT-Q4H PRN 30 Days #1 puff 01/27/21 [Rx] Ascorbic Acid [Vitamin C] 500 mg PO DAILY 30 Days #30 tab 01/27/21 [Rx] Zinc Sulfate [Orazinc] 220 mg PO DAILY 30 Days #30 cap 01/27/21 [Rx] dexAMETHasone [Hexadrol] 6 mg PO DAILY 6 Days #18 tab 01/27/21 [Rx] Follow up Appointment(s)/Referral(s): Getachew Lozano MD [STAFF PHYSICIAN] - 02/26/21 10:10 am [facility],Clinic [Primary Care Provider] - 1-2 days Ambulatory/Diagnostic Orders: Complete Blood Count w/diff [LAB.AMB] Time Frame: 3 Days, Location: None Selected Activity/Diet/Wound Care/Special Instructions: Pt would like a influenza and pneumonia vaccine prior to discharge. Discharge Disposition: HOME SELF-CARE
== END 2021-01-27 17:29 | disposition home or self-care (01) | DRG 177 ==
LOC: EC 09:27 → 3SCARD 13:05
PROVIDERS: ADMIT Hospitalist; ATTEND Hospitalist
PROC: XW13325 Transfusion of Convalescent Plasma (Nonautologous) into Peripheral Vein, Percutaneous Approach, New Technology Group 5 (ICD-10-PCS; principal; 2021-01-23)
PROC: XW033E5 Introduction of Remdesivir Anti-infective into Peripheral Vein, Percutaneous Approach, New Technology Group 5 (ICD-10-PCS; principal; 2021-01-23)
DX: U07.1 COVID-19 (principal); J12.82 Pneumonia due to coronavirus disease 2019; J96.01 Acute respiratory failure with hypoxia; F31.30 Bipolar disorder, current episode depressed, mild or moderate severity, unspecified; E87.1 Hypo-osmolality and hyponatremia; E11.9 Type 2 diabetes mellitus without complications; Z79.4 Long term (current) use of insulin; R62.7 Adult failure to thrive; J98.01 Acute bronchospasm; E86.0 Dehydration; E78.5 Hyperlipidemia, unspecified; E03.9 Hypothyroidism, unspecified; K21.9 Gastro-esophageal reflux disease without esophagitis; K44.9 Diaphragmatic hernia without obstruction or gangrene; G25.81 Restless legs syndrome; G47.00 Insomnia, unspecified; G89.29 Other chronic pain; M54.5 Low back pain; F43.10 Post-traumatic stress disorder, unspecified; H91.90 Unspecified hearing loss, unspecified ear; M19.90 Unspecified osteoarthritis, unspecified site; E66.9 Obesity, unspecified; Z68.23 Body mass index [BMI] 23.0-23.9, adult; Z71.3 Dietary counseling and surveillance; Z79.890 Hormone replacement therapy; Z79.899 Other long term (current) drug therapy; Z91.048 Other nonmedicinal substance allergy status; Z82.5 Family history of asthma and other chronic lower respiratory diseases; Z82.49 Family history of ischemic heart disease and other diseases of the circulatory system
CPT/HCPCS: 36415; 71045; 71046; 71275; 80048; 80053; 81001; 82550; 83605; 83615; 83735; 83880; 84145; 84484; 85025; 85379; 85610; 85730; 86140; 86850; 86900; 86901; 87040; 87324; 87502; 87635; 93005; 94640; 96361; 96365; 96374; 99285